=== PATIENT | male | born 1995 | race Caucasian/White ===

== ENCOUNTER 2018-08-23 21:29 | Emergency (ER) | payer SELFPAY ==
[~2018-08-23] VITALS: Ht 170.2 cm; Wt 73.5 kg
[2018-08-23 21:40] VITALS: BP 127/90
--- NOTE | 2018-08-23 21:50 | NUR ---
TO LOBBY, AMB. SCHMITT, A/W BED ERMD NOTED
--- NOTE | 2018-08-23 22:25 | NUR ---
PT AMBULATED TO BED 03.
--- NOTE | 2018-08-23 22:45 | NUR ---
23/M CAME IN ED, C/O LACERATION ON TIP OF L PINKY WITH MODERATE BLEEDING 1HR AGO. 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 PT DENIES ASSAULT. WOUND CLEANSED, PT INSTRUCTED TO APPLY PRESSURE ON L PINKY TO STOP BLEEDING. L HAND WITH +CMS. AOX4, AMBULATORY, RR EVEN AND UNLABORED. PT REPORTS 5/10 PAIN. DENIES MED HX, RX. ER MD AT BEDSIDE TO EVALUATE PT
--- NOTE | 2018-08-23 23:30 | NUR ---
Dr. Hackett evaluating patient at bedside.
[2018-08-23] MEDS ORDERED: MORPHINE SULFATE 4 MG/ML SYR IM ONE (23:35)
--- NOTE | 2018-08-23 23:37 | NUR ---
ER MD AT BEDSIDE TO EVALUATE LACERATION. VERBAL ORDER FOR MORPHINE 4MG IM TAKEN, MED GIVEN, PT TOLERATED WELL.
[2018-08-23] MEDS ORDERED: MORPHINE SULFATE 4 MG/ML SYR ONE (23:38)
--- NOTE | 2018-08-23 23:38 | NUR ---
Patient has a 2 cm laceration to LEFT 5THFINGER. Dr. RIVAS applied sutures using sterile technique. Edges well approximated. Site cleansed with STERILE WATER. No bleeding noted. Pt tolerated well.
[2018-08-23] MEDS ORDERED: LIDOCAINE 1% 500 MG/50 ML VIAL INJ SCH (23:40)
[2018-08-23] MEDS ORDERED: SILVER NITRATE APPLICATOR 1 EA SWAB TP ONE ×2 (23:40→23:41)
[2018-08-23] MEDS ORDERED: LIDOCAINE 1% 50 ML ONE (23:45)
--- NOTE | 2018-08-24 00:20 | NUR ---
ER AT BEDSIDE FOR SUTURING
[2018-08-24] MEDS ORDERED: CEPHALEXIN 500 MG CAP PO ONE (00:50)
[2018-08-24] MEDS ORDERED: SULFAMETH/TRIMETH DS 800/160MG 1 TAB PO ONE (00:50)
[2018-08-24] MEDS ORDERED: BACITRACIN OINT 500 UNITS/GM PKT TP ONE (00:50)
[2018-08-24 01:20] VITALS: BP 148/90
--- NOTE | 2018-08-24 01:20 | NUR ---
Patient discharged with v/s stable. Written and verbal after care instructions given and explained. Patient alert, oriented and verbalized understanding of instructions. Ambulatory with steady gait. All questions addressed prior to discharge. ID band removed. Patient advised to follow up with PMD. Rx of KEFLEX, BACTRIM given. Patient educated on indication of medication including possible reaction and side effects. Opportunity to ask questions provided and answered.
== END 2018-08-24 01:20 | disposition home or self-care (01) ==
LOC: MED 21:29
DX: S61.307A Unspecified open wound of left little finger with damage to nail, initial encounter (principal); W29.3XXA Contact with powered garden and outdoor hand tools and machinery, initial encounter; Y93.89 Activity, other specified; Y92.89 Other specified places as the place of occurrence of the external cause; Y99.8 Other external cause status
CPT/HCPCS: 12001; 73140; 90471; 90715; 96372; 99284; J2001; J2270